=== PATIENT | male | born 1955 | race Caucasian/White ===

== ENCOUNTER 2024-10-06 16:55 | Emergency (ER) | payer OTHER ==
[~2024-10-06] VITALS: Ht 165.1 cm; Wt 69.0 kg
[~2024-10-06 16:55] MED LIST: BO1 TP; DOXY-461 MT; IBUP-2029 MT
[2024-10-06 17:20] VITALS: O2SAT 98
[2024-10-06] MEDS ORDERED: BO1 TP (19:08)
[2024-10-06 21:03] VITALS: BP 147/82; PULSE 81; RESP 18; TEMP 36.8; O2SAT 98
== END 2024-10-06 19:18 | disposition home or self-care (01) ==
LOC: ER 16:55
DX: S61.212D Laceration without foreign body of right middle finger without damage to nail, subsequent encounter (principal); E11.9 Type 2 diabetes mellitus without complications; F03.90 Unspecified dementia, unspecified severity, without behavioral disturbance, psychotic disturbance, mood disturbance, and anxiety; I10 Essential (primary) hypertension; Z90.49 Acquired absence of other specified parts of digestive tract; X58.XXXD Exposure to other specified factors, subsequent encounter
CPT/HCPCS: 99282